=== PATIENT | male | born 1960 | race Caucasian/White ===

== ENCOUNTER 2022-12-05 01:52 | Emergency (ER) | payer BC, SELFPAY ==
[2022-12-05 01:56] VITALS: BP 158/95; PULSE 59; RESP 18; TEMP 36.7; O2SAT 100
[2022-12-05 02:07] VITALS: BP 159/101; PULSE 65; RESP 19; TEMP 36.7; O2SAT 99
--- NOTE | 2022-12-05 02:16 | ED.GENADULT ---
HPI - General Adult General Chief complaint: Skin/Abscess/Foreign Body <Adolfo Lucero PA-C - Last Filed: 12/05/22 02:54> Stated complaint: stung by insect, swelling <MATT Diaz Last Filed: 12/05/22 02:54> Time Seen by Provider: 12/05/22 02:01 <MATT Diaz Last Filed: 12/05/22 02:54> Source: patient <MATT Diaz Last Filed: 12/05/22 02:54> Mode of arrival: ambulatory <MATT Diaz Last Filed: 12/05/22 02:54> Limitations: no limitations <MATT Diaz Last Filed: 12/05/22 02:54> History of Present Illness HPI narrative: This is a 61-year-old male with no pertinent PMH who presents to the ED with chief complaint of insect sting and right hand swelling. Patient states that the right ring finger was stung by what he thinks was a hornet over a day ago. He took 2 Benadryl's and had some relief. Today the swelling did not go away and started to bother him at night so he presented to the ED. states swelling started in the right ring finger and has since spread into the hand and wrist. Denies fevers, chills, shortness of breath, rashes. <MATT Diaz Last Filed: 12/05/22 02:54> Related Data Allergies/adverse reactions: Allergies Allergy/AdvReac Type Severity Reaction Status Date / Time No Known Allergies Allergy Verified 12/05/22 02:17 <Adolfo Lucero PA-C - Last Filed: 12/05/22 02:54> Review of Systems Review of Systems: CONSTITUTIONAL: Denies fever, chills, or sweats. EYES: Denies visual changes, redness, or discharge. SKIN: Endorses right hand swelling. Denies rash or itching. MUSCULOSKELETAL: Denies back pain, joint pain, or myalgia. NEUROLOGIC: Denies headache, numbness, dizziness, or weakness. PSYCHIATRIC: Denies anxiety or depression. <Adolfo Lucero PA-C - Last Filed: 12/05/22 02:54> REPLACED BY [facility] Past Medical History Medical History: Medical History Benign essential HTN Hx of intestinal obstruction <Adolfo Lucero PA-C - Last Filed: 12/05/22 02:54> Surgical History Surgical History: Surgical History History of wisdom tooth extraction <Adolfo Lucero PA-C - Last Filed: 12/05/22 02:54> Family History Family History: Family History (Updated 11/07/21 @ 08:30 by Irasema Graham NP) Father Hypertension Malignant neoplasm of prostate Heart disease CAD, 1 stent Bladder cancer Grandparent Hypertension Carcinoma of colon Family history of coronary artery disease Mother Cancer of thyroid <Adolfo Lucero PA-C - Last Filed: 12/05/22 02:54> Social History Social History: Social History (Updated 11/07/21 @ 08:20 by Magdalena Coker) Smoking status: Never smoker Second hand tobacco smoke exposure: No Alcohol intake: never Substance use: never Substance use type: does not use Living arrangements: with family Occupation/Education: occupation Gender identity (if verbalized by the patient): Male Sexual Orientation (if Verbalized by the Patient): Straight or Heterosexual <MATT Diaz Last Filed: 12/05/22 02:54> Exam Narrative: GENERAL: Well-appearing, well-nourished, and in no acute distress. Resting comfortably. HEAD: Normocephalic, atraumatic. EYES: PERRLA and EOMI. ENT: Maintains airway. EXTREMITIES: Right hand: Marked swelling to the right hand extending to the right wrist. Negative Kanavel signs. Mildly tender in the area of the lesion. Radial pulse intact. Good cap refill. Left hand: Benign. MSK exam is otherwise benign. Normal range of motion. No edema. Ambulatory. SKIN: Warm, dry, no rash. NEURO: Alert and oriented x3. No focal deficits. PSYCH: Normal mood and affect. <MATT Diaz Last Filed: 12/05/22 02:54> Course COLLISION ESTIMATOR/PA Physician Supervision I agree with midlevel documentation; I performed H&P inclu
[2022-12-05] MEDS: predniSONE 20 MG TABLET 60 MG PO (02:43)
[2022-12-05 02:49] VITALS: BP 147/103; PULSE 69; RESP 18; O2SAT 99
== END 2022-12-05 02:45 | disposition home or self-care (01) ==
PROVIDERS: Emergency Provider Physician Assistant; PCP Family Medicine
DX: M79.89 Other specified soft tissue disorders (principal); I10 Essential (primary) hypertension
CPT/HCPCS: 99283; J7512

== ENCOUNTER 2023-08-22 00:10 | Day surgery (SDC) | payer BC, SELFPAY ==
[2023-08-08 10:31] VITALS: BMI 27.3
--- NOTE | 2023-08-21 11:22 | SUR.PREOP ---
Patient called regarding upcoming procedure. Message left on pt's voicemail regarding appointment times.
--- NOTE | 2023-08-21 13:25 | PM.HPGS ---
History of Present Illness History of Present Illness Consent: Risks, benefits, and alternatives have been discussed and questions answered. Patient agrees to proceed with procedure. Chief complaint: neoplasm screening Narrative: Bishop Simon is a 62 year old male Referred for colon cancer screening. His last colonoscopy was 10 years ago and was negative except for the presence of 2 hyperplastic polyps. Review of Systems Review of Systems: All systems reviewed & are unremarkable except as noted in HPI and below PMFSH Past Medical History Medical History Benign essential HTN Hx of intestinal obstruction Surgical History Surgical History History of wisdom tooth extraction Family History Family History Father Hypertension Malignant neoplasm of prostate Heart disease CAD, 1 stent Bladder cancer Grandparent Hypertension Carcinoma of colon Family history of coronary artery disease Mother Cancer of thyroid Social History Social History Social History: Smoking status: Never smoker Second hand tobacco smoke exposure: No Alcohol intake: current Drinks per week: 14 Substance use: never Substance use type: does not use Lack of Transportation: No Lack of Food: Never True Current Housing: I Have Housing Concerned About Future Housing: No Difficulty Paying Gas/Electric Bills: No Difficulty Paying for Meds: No Currently Unemployed: No Education: Decline to Answer Difficulty w/ Childcare or Family Care: No Living arrangements: with family Occupation/Education: occupation Gender identity (if verbalized by the patient): Male Sexual Orientation (if Verbalized by the Patient): Straight or Heterosexual Spiritual care concerns: No Meds Home Medications and Allergies Home Medications Medication Instructions Recorded Confirmed Type rosuvastatin 5 mg tablet 5 mg PO DAILY #30 tabs 01/23/23 08/22/23 Rx ramipril 10 mg capsule See Rx Instructions .Route 08/09/23 08/22/23 Rx .COMPLEX #180 caps Allergies Allergy/AdvReac Type Severity Reaction Status Date / Time No Known Allergies Allergy Verified 08/22/23 08:46 Exam Resp: Auscultation: clear to auscultation bilaterally Cardio: Rate: regular rate Rhythm: regular rhythm GI: GI Palp: Yes Soft to palpation and No Tenderness to palpation present (GI) Assessment and Plan Assessment and plan (1) Colon cancer screening: Code(s): Z12.11 - Encounter for screening for malignant neoplasm of colon Status: Acute Assessment and Plan: Colonoscopy with possible biopsy or polypectomy or cautery or injection of substances.
[2023-08-22 08:47] VITALS: BP 137/96; PULSE 62; RESP 18; TEMP 36.1; O2SAT 100; BMI 26.9
[2023-08-22] MEDS: LACTATED RINGERS 1,000 ML 150 ML IV CONT (08:56)
--- NOTE | 2023-08-22 09:36 | WPDANESEPPF ---
Anes - Initial Pre Proc Eval Procedure: Operation Date: 08/22/23 10:00 Proposed Procedures p Screening Colonoscopy - Franco Albarado MD Date/Time: 08/22/23 09:36 Surgeon: Franco Albarado MD Pre Op Diagnosis: neoplasm screening Patient Data Age: 62 Gender: M Height: 1.8 m Weight: 87.5 kg Last Vital Signs Temp 97.0 F L 08/22/23 08:47 Pulse 62 08/22/23 08:47 Resp 18 08/22/23 08:47 BP 137/96 H 08/22/23 08:47 Pulse Ox 100 08/22/23 08:47 O2 Del Method Room Air 08/22/23 08:47 Allergies Allergy/AdvReac Type Severity Reaction Status Date / Time No Known Allergies Allergy Verified 08/22/23 08:46 Home Medications Medication Instructions Recorded Confirmed Type rosuvastatin 5 mg tablet 5 mg PO DAILY #30 tabs 01/23/23 08/22/23 Rx ramipril 10 mg capsule See Rx Instructions .Route 08/09/23 08/22/23 Rx .COMPLEX #180 caps Patient hx anesthesia problems: none Family hx anesthesia problems: none Results Review: All pre-operative results and documents have been reviewed as part of the pre-operative evaluation. [facility] Past Medical History Medical History Benign essential HTN Hx of intestinal obstruction Surgical History Surgical History History of wisdom tooth extraction Family History Family History Father Hypertension Malignant neoplasm of prostate Heart disease CAD, 1 stent Bladder cancer Grandparent Hypertension Carcinoma of colon Family history of coronary artery disease Mother Cancer of thyroid Social History Social History Social History: Smoking status: Never smoker Second hand tobacco smoke exposure: No Alcohol intake: current Drinks per week: 14 Substance use: never Substance use type: does not use Lack of Transportation: No Lack of Food: Never True Current Housing: I Have Housing Concerned About Future Housing: No Difficulty Paying Gas/Electric Bills: No Difficulty Paying for Meds: No Currently Unemployed: No Education: Decline to Answer Difficulty w/ Childcare or Family Care: No Living arrangements: with family Occupation/Education: occupation Gender identity (if verbalized by the patient): Male Sexual Orientation (if Verbalized by the Patient): Straight or Heterosexual Spiritual care concerns: No Anes - Eval Final PreProcedure Day of Procedure 08/22/23 09:36 Patient weight: normal Heart: regular rate and rhythm Lungs: clear to auscultation Airway: Mallampati scale class II Neurological: alert and oriented Last oral intake: >/= 8 hours ASA classification: II Emergent: no Anesthetic plan: proceed Anesthesia type and monitoring: general GIVS and standard monitoring Results Review: All pre-operative results and documents have been reviewed as part of the pre-operative evaluation. Informed Consent: The patient's anesthetic plan and its attendant risks and benefits were discussed with the patient/family/POA. Questions were solicited and answers provided to the satisfaction of the patient/family/POA.
[2023-08-22 10:18] VITALS: BP 112/80; PULSE 55; RESP 20; O2SAT 97
[2023-08-22 10:28] VITALS: BP 115/80; PULSE 52; RESP 24; O2SAT 99
[2023-08-22 10:38] VITALS: BP 134/104; PULSE 70; RESP 20; O2SAT 100
== END 2023-08-22 10:44 | disposition home or self-care (01) ==
PROVIDERS: PCP Family Medicine; Visit Provider Internal Medicine Gastroenterology
PROC: 0DJD8ZZ Inspection of Lower Intestinal Tract, Via Natural or Artificial Opening Endoscopic (ICD-10-PCS; CPT 45378; principal; 2023-08-22 10:00)
DX: Z12.11 Encounter for screening for malignant neoplasm of colon (principal); K64.8 Other hemorrhoids; I10 Essential (primary) hypertension; K56.609 Unspecified intestinal obstruction, unspecified as to partial versus complete obstruction; Z82.49 Family history of ischemic heart disease and other diseases of the circulatory system; Z80.52 Family history of malignant neoplasm of bladder; Z80.42 Family history of malignant neoplasm of prostate; Z80.0 Family history of malignant neoplasm of digestive organs
CPT/HCPCS: 45378; J2704; J7120

== ENCOUNTER 2023-11-11 08:06 | Emergency (ER) | payer OTHER, SELFPAY ==
--- NOTE | 2023-11-11 08:09 | ED.GENADULT ---
HPI - General Adult General Chief complaint: Upper Respiratory Infection Stated complaint: Sore Throat,Congestion Time Seen by Provider: 11/11/23 08:09 Source: patient Mode of arrival: ambulatory Limitations: no limitations History of Present Illness HPI narrative: 62-year-old male presents to the clinic today with cold symptoms of fatigue, congestion, runny nose that started mid last week. Patient reports on Sunday he started with a sore throat and some body aches that progressed to a severe sore throat yesterday and this morning. He is also experiencing diarrhea but denies fever, chills, nausea, vomiting. Patient states he is also having pain that starts in his neck and radiates to his right ear with swallowing. patient states he took a home COVID test yesterday which resulted negative. Patient denies receiving the flu vaccine this year Related Data Allergies Allergy/AdvReac Type Severity Reaction Status Date / Time No Known Allergies Allergy Verified 11/11/23 08:16 Review of Systems Review of Systems: CONSTITUTIONAL: Denies fever, chills, or sweats. Positive for mild body aches. EYES: Denies visual changes, redness, or discharge. ENT: positive rhinorrhea, congestion, sore throat, and right otalgia. CARDIOVASCULAR: Denies chest pain, palpitations, or edema. RESPIRATORY: positive cough, denies dyspnea, positive chest tightness when trying to take a full breath. GASTROINTESTINAL: Denies abdominal pain, nausea, vomiting. positive diarrhea. GENITOURINARY: Denies dysuria or hematuria. SKIN: Denies rash or itching. MUSCULOSKELETAL: Denies back pain, joint pain, or myalgia. NEUROLOGIC: Denies headache, numbness, or weakness. PSYCHIATRIC: Denies anxiety or depression. [facility] Past Medical History Medical History (Updated 11/11/23 @ 08:38 by YOSSI Gaytan) Arthritis Benign essential HTN Family history of bladder cancer Family history of colon cancer Family history of thyroid cancer Hepatic lesion Hx of intestinal obstruction Kidney cysts Kidney stone Shingles rash Surgical History Surgical History (Updated 11/11/23 @ 08:12 by YOSSI Gaytan) H/O vasectomy History of wisdom tooth extraction Family History Family History Father Hypertension Malignant neoplasm of prostate Heart disease CAD, 1 stent Bladder cancer Grandparent Hypertension Carcinoma of colon Family history of coronary artery disease Mother Cancer of thyroid Social History Social History Social History: Smoking status: Never smoker Second hand tobacco smoke exposure: No Alcohol intake: current Drinks per week: 14 Substance use: never Substance use type: does not use Lack of Transportation: No Lack of Food: Never True Current Housing: I Have Housing Concerned About Future Housing: No Difficulty Paying Gas/Electric Bills: No Difficulty Paying for Meds: No Currently Unemployed: No Education: Decline to Answer Difficulty w/ Childcare or Family Care: No Living arrangements: with family Occupation/Education: occupation Gender identity (if verbalized by the patient): Male Sexual Orientation (if Verbalized by the Patient): Straight or Heterosexual Spiritual care concerns: No Exam Narrative: GENERAL: Well-appearing, well-nourished, and in no acute distress. HEAD: Normocephalic, atraumatic. EYES: PERRLA and EOMI. ENT: Nares clear, positive bilateral rhinorrhea, bilateral turbinates erythematous and boggy, without epistaxis. Mucous membranes moist. bilateral ear canals free of foreign bodies, erythema, edema, and drainage in bilateral TMs pearly vallecillo without effusion, erythema or edema. posterior oropharynx is erythematous tonsils are +1 without exudate. NECK: Supple. positive bilateral submandibular lymphadenopathy. CHEST: Clear to auscultation. No
[2023-11-11 08:16] VITALS: BP 155/97; PULSE 65; RESP 18; TEMP 36.4; O2SAT 100
--- NOTE | 2023-11-11 08:36 | PC.NURSE ---
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
== END 2023-11-11 09:01 | disposition home or self-care (01) ==
PROVIDERS: Emergency Provider Nurse Practitioner Family; PCP Family Medicine
DX: J02.9 Acute pharyngitis, unspecified (principal); I10 Essential (primary) hypertension; M19.90 Unspecified osteoarthritis, unspecified site; Z98.52 Vasectomy status
CPT/HCPCS: 87081; 87804; 87880; 99213; G0463

== ENCOUNTER 2025-02-19 10:20 | Outpatient (CLI) | payer OTHER, SELFPAY ==
--- NOTE | ~2025-02-19 | US_ITS ---
Abdominal Sonogram: Real-time sonographic imaging of the abdomen was performed. Clinical History: Other disease of liver Findings: The liver appears heterogeneous, with no evidence of solid mass lesion or bile duct dilata tion. 2.6 cm hepatic cyst present. Main portal vein demonstrates normal direction of flow. The spleen is normal in size without evidence of focal lesion. The gallbladder is well distended, and appears normal with no evidence of gallstone or wall thickening. The common bile duct measures 4 mm. The vis ualized pancreas, aorta, and IVC are unremarkable. The right kidney measures 11.4 cm in length and t he left kidney measures 10.3 cm. There is no hydronephrosis or renal calculus. Impression: Heterogeneous hepatic echotexture could reflect fatty infiltration versus other chronic liver disease . Correlate clinically. 2.6 cm hepatic cyst. Reviewed, dictated and finalized at [facility]. Impression: Heterogeneous hepatic echotexture could reflect fatty infiltration versus other chronic liver disease. Correlate clinically. 2.6 cm hepatic cyst.
== END 2025-02-19 10:21 | disposition home or self-care (01) ==
LOC: MICIMG 10:21
PROVIDERS: PCP Physician Assistant Medical; Visit Provider Physician Assistant Medical
DX: K76.89 Other specified diseases of liver (principal)
CPT/HCPCS: 76700

== ENCOUNTER 2025-02-26 09:35 | Outpatient (CLI) | payer OTHER, SELFPAY ==
--- NOTE | ~2025-02-26 | MR_ITS ---
MRI of the abdomen: Clinical indication: Other specified disease of liver. Technique: Coronal SSFSE ARC, WATER:coronal LAVA-FLEX, Coronal 2D FIESTA FatSat, Axial SSFSE BH ARC, Axial 3D DualEcho BH, Axial SSFSE-IR, Axial DWI b=500, Axial 2D FIESTA FatSat, pre and dynamic postco ntrast Axial LAVA ARC, postcontrast Coronal In and Opposed phase LAVA FLEX. Following intravenous adm inistration of 18 cc MultiHance gadolinium, T1-weighted fat-sat imaging was performed in the axial an d coronal planes. COMPARISON: 09/21/2018 Findings: Gallbladder unremarkable. The common bile duct is normal in course and caliber. No filling defects are seen within the CBD. No evidence of intrahepatic biliary ductal dilatation. The pancreati c duct is normal in size. There are innumerable scattered hepatic cysts and/or biliary hamartomas, most of which are under 1 cm in size. Spleen, pancreas, adrenals, kidneys appear normal. The aorta and the paraaortic regions shellie ear normal. No abnormal postcontrast enhancement identified. Impression: Innumerable hepatic cysts and/or biliary hematomas, similar to prior exam. Reviewed, dictated and finalized at location . Impression: Innumerable hepatic cysts and/or biliary hematomas, similar to prior exam.
== END 2025-02-26 09:36 | disposition home or self-care (01) ==
PROVIDERS: PCP Physician Assistant Medical; Visit Provider Physician Assistant Medical
DX: K76.89 Other specified diseases of liver (principal)
CPT/HCPCS: 74183; A9577